=== PATIENT | male | born 1955 | race Two or more races ===

== ENCOUNTER 2020-03-18 14:10 | Outpatient (CLI) | payer OTHER ==
[2020-03-18 14:44] LABS: ALBUMIN 3.3 g/dL (3.2-5.5); ALBUMIN/GLOBULIN RATIO 0.8 (1.0-2.2); BILIRUBIN,TOTAL 0.7 mg/dL (0.2-1.0); CALCIUM 8.7 mg/dL (8.5-10.3); TOTAL PROTEIN 7.4 g/dL (6.7-8.2)
[2020-03-18 14:57] LABS: HEMOGLOBIN A1C 0.67 g/dL
== END 2020-03-18 23:59 | disposition home or self-care (01) ==
LOC: LAB.R 14:10
PROVIDERS: ATTEND Family Medicine
DX: E11.9 Type 2 diabetes mellitus without complications (principal); E78.5 Hyperlipidemia, unspecified
CPT/HCPCS: 80053; 83036

== ENCOUNTER 2020-03-26 16:45 | Outpatient (CLI) | payer MEDICAID ==
[2020-03-26 16:59] LABS: CALCIUM 8.9 mg/dL (8.5-10.3); CREATININE 0.9 mg/dL (0.6-1.2)
== END 2020-03-26 23:59 | disposition home or self-care (01) ==
LOC: LAB.R 16:45
DX: E78.5 Hyperlipidemia, unspecified (principal)
CPT/HCPCS: 80048

== ENCOUNTER 2020-04-09 17:50 | Outpatient (CLI) | payer MEDICAID ==
[2020-04-09 19:10] LABS: CALCIUM 8.8 mg/dL (8.5-10.3)
[2020-04-09 19:29] LABS: BASOPHILS # (AUTO) 0.1 10^3/uL (0.0-0.1); BASOPHILS % (AUTO) 0.8 %; EOSINOPHILS # (AUTO) 0.4 10^3/uL (0.0-0.7); EOSINOPHILS % (AUTO) 3.7 %; HGB - HEMOGLOBIN 15.2 g/dL (14.0-18.0); LYMPHOCYTES # (AUTO) 2.6 10^3/uL (1.5-3.5); LYMPHOCYTES % (AUTO) 26.9 %; MEAN CORPUSCULAR HEMOGLOBIN 30.2 pg (27.0-31.0); MEAN CORPUSCULAR HGB CONC 32.6 g/dL (32.0-36.0); MEAN CORPUSCULAR VOLUME 92.5 fL (80.0-94.0); MEAN PLATELET VOLUME 10.2 fL (7.4-11.4); MONOCYTES # (AUTO) 0.8 10^3/uL (0.0-1.0); MONOCYTES % (AUTO) 8.6 %; NEUTROPHILS # (AUTO) 5.8 10^3/uL (1.5-6.6); NEUTROPHILS % (AUTO) 59.6 %; PLT - PLATELET COUNT 240 10^3/uL (130-450); RED BLOOD COUNT 5.04 10^6/uL (4.70-6.10); RED CELL DISTRIBUTION WIDTH 13.8 % (12.0-15.0); WHITE BLOOD COUNT 9.7 x10^3/uL (4.8-10.8)
== END 2020-04-09 23:59 | disposition home or self-care (01) ==
LOC: LAB.R 17:50
PROVIDERS: ATTEND Family Medicine
DX: E11.9 Type 2 diabetes mellitus without complications (principal); I48.91 Unspecified atrial fibrillation
CPT/HCPCS: 80048; 82607; 83921; 85025